=== PATIENT | male | born 1960 | race Hispanic/Latino ===

== ENCOUNTER 2022-10-19 10:30 | Day surgery (SDC) | payer BC ==
[2022-10-16 11:02] LABS: Absolute Lymphocytes (CBC) 1.5 K/uL (0.7-4.9); Hematocrit 43.7 % (39.6-49.0); Lymphocytes % 26.1 % (15.3-44.8); MPV 7.5 fL (7.6-11.3); RBC Red Blood Cell Count 5.46 M/uL (4.33-5.43)
[2022-10-16 11:05] LABS: Protime INR 3.05
[2022-10-16 11:28] LABS: Potassium 3.7 mEq/L (3.5-5.1)
--- NOTE | 2022-10-16 13:00 | RAD REPORT ---
EXAM DESCRIPTION: RAD - Chest Pa And Lat (2 Views) - 10/16/2022 11:08 am CLINICAL HISTORY: Pre op pending heart cath Chest pain. COMPARISON: No comparisons TECHNIQUE: PA and lateral views of the chest were obtained. FINDINGS: The lungs are hyperexpanded compatible with COPD. The heart is upper limit of normal in si ze. No fracture or aggressive bony process. Sternotomy wires. IMPRESSION: COPD without acute process identified. The USPSTF recommends annual screening for lung cancer with low-dose CT (LDCT) in adults aged 50 to 8 0 years who have a 20 pack-year smoking history and currently smoke or have quit within the past 15 y ears.
[2022-10-19] MEDS ORDERED: NA CHLORIDE 0.9% 500 ML ONE (10:38)
[2022-10-19] MEDS ORDERED: HEPA 1000U/500MLS 2,000 UNIT/1,000 ML BAG IV ONE (11:12)
[2022-10-19] MEDS ORDERED: LIDOCAINE 1% 20 ML MDV ONE (11:12)
[2022-10-19] MEDS ORDERED: HEPA 1000U/500MLS 1,000 UNIT/500 ML BAG IV ONE (11:43)
[2022-10-19] MEDS ORDERED: CLOPIDOGREL 75 MG TABLET ONE (11:43)
[2022-10-19] MEDS ORDERED: FENTANYL CITR 100 MCG/2 ML ONE (11:43)
[2022-10-19] MEDS ORDERED: MIDAZOLAM HCL 2 MG/2 ML INJ ONE (11:43)
[2022-10-19] MEDS ORDERED: VERAPAMIL HCL 10 MG/4 ML VIAL IV ONE (11:43)
[2022-10-19] MEDS ORDERED: HEPARIN 5000 UNIT/ML 1 ML VIAL ONE (11:43)
[2022-10-19] MEDS ORDERED: ASPIRIN 325 MG TAB ONE (11:43)
[2022-10-19] MEDS ORDERED: HEPARIN 10,000 UNIT/10 ML VIAL IV ONE (11:44)
[2022-10-19] MEDS ORDERED: TICAGRELOR 90 MG TABLET PO ONE (11:44)
[2022-10-19] MEDS ORDERED: ATROPINE SULF 1 MG/10 ML SYR IV ONE (11:44)
[2022-10-19 14:01] VITALS: O2SAT 97
[2022-10-19 14:55] VITALS: BP 114/80
== END 2022-10-19 14:57 | disposition home or self-care (01) ==
LOC: CCL 10:30
PROVIDERS: ATTEND Internal Medicine
DX: I71.20 Thoracic aortic aneurysm, without rupture, unspecified (principal); I35.0 Nonrheumatic aortic (valve) stenosis; Q23.1 Congenital insufficiency of aortic valve
CPT/HCPCS: 85025; 80048; 36415; 85610; 85730; 71046; 93454; 76937; C1893; Q9966; J1644; J2001; J2250; J3010; J7040; J0461